=== PATIENT | female | born 1940 | race Caucasian/White ===

== ENCOUNTER 2020-04-12 15:41 | Emergency (ER) | payer MEDICARE, SELFPAY ==
[2020-04-12] VITALS (16 sets, daily range): BP systolic 81–124; BP diastolic 41–65; PULSE 68–84; RESP 15–32; TEMP 36.2–36.7; O2SAT 96–100
--- NOTE | ~2020-04-12 | CT_ITS ---
EXAMINATION: CT abdomen pelvis wo con DATE: 04/12/2020 18:00 INDICATION: Epigastric pain TECHNIQUE: Computed tomography (CT) of the abdomen and pelvis was performed without intravenous contr ast. Automated exposure control and iterative reconstruction technique were employed. The dose-length product was 734.20 mGy-cm. COMPARISON: None FINDINGS: Scattered linear discoid atelectasis in the bilateral lower lung zones. Arch size is normal. Mild lef t atrial enlargement. Mitral valve repair. Cardiac pacemaker leads with tips at the right atrial appe ndage and near the apex of the right ventricle. Atherosclerotic coronary artery calcification. Aortic valve calcification. No pericardial or pleural effusion. Well-defined 3.2 cm relatively low-attenuation hepatic lesion statistically most likely to represent a hepatic cyst. Cholecystectomy clips the gallbladder fossa. Bilateral renal cysts measuring up to 4. 1 cm in maximal diameter on the right and 3.9 cm on the left. There is a large retroperitoneal hemato ma in the right upper quadrant located along the posterior margin of the duodenum which measures 10.4 cm craniocaudally and 10.8 x 5.5 cm in maximal transaxial dimensions. There is fatty atrophy of the pancreas with some stranding about the head and body of the pancreas which is likely related to the h emorrhage but could not absolutely excluded acute interstitial pancreatitis. Bilateral adrenal glands and spleen are normal. There is a small amount of hemoperitoneum predominately in the pelvis with sm all amount of hemoperitoneum along the liver and spleen. Aside from the duodenum, assessment of which is limited by the surrounding hemorrhage, there is no abnormal bowel wall thickening. No bowel obstr uction. Bladder is normal. The uterus is not identified and has likely been surgically resected. Ther e are couple dropped gallstones in the deep pelvis. No free intraperitoneal gas. Multiple prominent mesenteric lymph nodes along with additional likely p eriportal lymphadenopathy assessment of which is limited by the surrounding inflammatory stranding an d hemorrhage in the portacaval region. There is an approximately 3.8 x 4.3 x 3.9 cm relatively aggres sive appearing mixed lytic and sclerotic lesion in the left sacral ala which is concerning for malign joy. Moderate to severe thoracolumbar spondylosis. There is an additional 1 cm sclerotic bone lesion posterior to the left acetabulum with stippled appearance to the calcification is indeterminate for bone island versus potentially bone metastasis. IMPRESSION: 1. Large retroperitoneal hematoma in the right upper quadrant centered along the posterior margin of the duodenum which is of indeterminate origin. Additional small amount of hemoperitoneum. 2. Stranding surrounding the head and body of the pancreas most likely related to the hemorrhage but would correlate with amylase and lipase levels to exclude acute interstitial pancreatitis. 3. Approximately 4 similar aggressive appearing mixed lytic and sclerotic lesion at the left sacral a la which is concerning for malignancy, either primary or metastatic. The sclerotic portion of the les ion has an appearance suggesting chondroid matrix raising particular concern for chondrosarcoma. 4. A second small sclerotic lesion posterior to the left acetabulum which could represent either bone island or metastatic disease. 5. Mesenteric and periportal lymphadenopathy which could be reactive, metastatic or lymphoma. 6. 3.2 cm relatively well-defined low-attenuation hepatic lesion statistically most likely to represe nt a hepatic cyst although differential would include less likely metastases. Given the size and loca tion ultrasound to be obtained for discrimination and is lesion appears solid would consider ultrasou nd-guided biopsy. Reviewed, dictated and finalized a
--- NOTE | ~2020-04-12 | XR_ITS ---
EXAMINATION: XR chest 2V DATE: 04/12/2020 16:22 INDICATION: Right rib pain TECHNIQUE: frontal and lateral views of the chest were obtained. COMPARISON: Chest radiograph dated 01/29/2014 FINDINGS: Eventration along the anterior left hemidiaphragm which is new since the prior study. Linear opacitie s in the bilateral mid and lower lung zones with configuration favoring discoid atelectasis over pneu monia. No pulmonary edema, pleural effusion or pneumothorax. The cardiomediastinal silhouette is norm al. Cardiac valve repair, likely mitral. Cholecystectomy clips in the right upper quadrant. Moderate degenerative skeletal changes in the spine and at both shoulders. IMPRESSION: 1. Linear opacities in the bilateral mid and lower lung zones which favors atelectasis over pneumonia . Reviewed, dictated and finalized at location A. IMPRESSION: 1. Linear opacities in the bilateral mid and lower lung zones which favors atel ectasis over pneumonia.
--- NOTE | 2020-04-12 15:50 | ECG_ITS ---
Measurements Intervals Webb Rate: 49 P: 81 WI: 164 QRS: 16 QRSD: 81 T: 32 QT: 417 QTc: 377 Interpretive Statements SINUS RHYTHM FREQUENT ATRIAL PREMATURE COMPLEXES BORDERLINE T WAVE ABNORMALITY- ANTERIOR LEADS BASELINE WANDER- I, II, AVR, AVF, V3 ABNORMAL ECG Electronically Signed On 04-13-2020 6:48:57 CDT by Nimesh Phillips D.O.
--- NOTE | 2020-04-12 16:01 | ED.ABDPAIN ---
HPI - Abdominal Pain General Chief Complaint: Abdominal Pain <Evan Allison MD - Last Filed: 04/16/20 17:26> Stated Complaint: weakness/abd pain <Evan Allison MD - Last Filed: 04/16/20 17:26> Time Seen by Provider: 04/13/20 07:04 <Evan Allison MD - Last Filed: 04/16/20 17:26> History of Present Illness HPI narrative: 80 yo female with a h/o abdominal issues presents to the ED for weakness and abdominal pain. She reports that she has epigastric pain for 3 months. She has had little appetite over that time. She was being elvaluated by Dr. Baker at [facility]. She had a recent upper endoscopy showing tammie erythema in the stomach and signs of gastroparesis. Last night she felt a pop in her side and began having severe pain in the RUQ and epigastrium. Today she was feeling to weak to walk, so she called EMS. They noted that she was hypotensive with SBP of 80. She denies any dark or bloody stools. No CP, SOB, syncope. <Evan Allison MD - Last Filed: 04/16/20 17:26> Related Data Home Medications: Home Medications Medication Instructions Recorded Confirmed acetaminophen [Tylenol] 65 mg PO PRN PRN 04/12/20 aspirin 81 mg PO DAILY 04/12/20 atorvastatin 10 mg PO HS 04/12/20 dicyclomine 10 mg PO TID 04/12/20 dimenhydrinate 50 mg PO Q8H 04/12/20 docusate sodium [Colace] 100 mg PO BID 04/12/20 famotidine [Pepcid] 20 mg PO BID 04/12/20 furosemide [Lasix] 40 mg PO DAILY 04/12/20 [id number] [Creon] PO 04/12/20 nortriptyline 25 mg PO HS 04/12/20 omeprazole magnesium [Prilosec OTC] 20 mg PO BID 04/12/20 oxycodone 5 mg PO Q4H PRN 04/12/20 prochlorperazine maleate 04/12/20 sertraline 100 mg PO DAILY 04/12/20 spironolactone 37.5 mg PO DAILY 04/12/20 warfarin 1 mg PO DAILY 04/12/20 propranolol PO 04/13/20 <Evan Allison MD - Last Filed: 04/16/20 17:26> Allergies/Adverse Reactions: Allergies Allergy/AdvReac Type Severity Reaction Status Date / Time iodine Allergy Intermediate Headache Verified 04/12/20 20:49 morphine Allergy Mild Unknown Verified 04/12/20 20:49 nalbuphine Allergy Mild Vomiting Verified 04/12/20 20:49 codeine Allergy Unknown Unknown Verified 04/12/20 20:49 <Evan Allison MD - Last Filed: 04/16/20 17:26> Review of Systems Review of Systems: All systems reviewed & are unremarkable except as noted in HPI and below <Evan Allison MD - Last Filed: 04/16/20 17:26> Constitutional: Constitutional: Reports fatigue, Denies fever(s) and Reports weakness <Evan Allison MD - Last Filed: 04/16/20 17:26> ENT: Denies sore throat <Evan Allison MD - Last Filed: 04/16/20 17:26> Cardiovascular: Cardiovascular: Denies chest pain <Evan Allison MD - Last Filed: 04/16/20 17:26> Respiratory: Respiratory: Denies dyspnea <Evan Allison MD - Last Filed: 04/16/20 17:26> Gastrointestinal: Gastrointestinal: Reports abdominal pain, Denies constipation, Denies diarrhea, Reports nausea and Denies vomiting <Evan Allison MD - Last Filed: 04/16/20 17:26> Genitourinary: Genitourinary: Denies hematuria and Denies dysuria <Evan Allison MD - Last Filed: 04/16/20 17:26> Musculoskeletal: Musculoskeletal: Denies back pain <Evan Allison MD - Last Filed: 04/16/20 17:26> Neurologic: Reports dizziness, Denies syncope, Denies numbness and Reports weakness <Evan Allison MD - Last Filed: 04/16/20 17:26> PMFSH Past Medical History Medical History: Medical History (Updated 04/14/20 @ 00:00 by Background Daemon) Atrial fibrillation Cardiomyopathy <Evan Allison MD - Last Filed: 04/16/20 17:26> Surgical History Surgical History: Surgical History (Updated 04/12/20 @ 21:01 by Evan Allison MD) H/O maze procedure History of cholecystectomy <Evan Allison MD - Last Filed: 04/16/20 17:26> Social History Social History: Social History (Updated 04/12/20
[2020-04-12 16:03] LABS: Basophils Percent Auto 0.3 % (0.2-1.2); Eosinophils Percent Auto 0.1 % (0-4.4); Hematocrit 30.2 % (37.0-47.0); Hemoglobin 10.1 g/dL (12.0-15.0); Immature Granulocyte Percent A 1.4 % (0-0.5); Lymphocytes Absolute Auto 1.66 K/mm3 (0.9-3.2); Lymphocytes Percent Auto 23.7 % (18.3-44.2); Mean Corpuscular HGB Conc 33.4 g/dl (32-36); Mean Corpuscular Hemoglobin 29.2 pg (26-34); Mean Corpuscular Volume 87.3 fl (80-100); Monocytes Percent Auto 13.7 % (2.6-8.5); Neutrophils Absolute Auto 4.3 K/mm3 (1.3-6.7); Neutrophils Percent Auto 60.8 % (45.5-73.1); Platelet Count Result 158 k/mm3 (150-375); Red Blood Count 3.46 M/mm3 (4.2-5.4); Red Cell Distribution Width 15.9 % (11.5-14.5)
[2020-04-12 16:15] LABS: Alanine Aminotransferase 22 U/L (4-35); Albumin Level 4.3 g/dL (3.5-5.1); Alkaline Phosphatase 104 U/L (38-126); Anion Gap 11 mmol/L (8-16); Aspartate Amino Transferase 25 U/L (14-36); Bilirubin,Total 0.9 mg/dL (0.2-1.3); Blood Urea Nitrogen 18 mg/dL (7-17); Calcium 9.5 mg/dL (8.4-10.2); Carbon Dioxide 27 mmol/L (22-30); Chloride 96 mmol/L (98-107); Estimated CRCL calculation 32 ml/min; Estimated Glomerular Filt Rate 53; Glucose 168 mg/dL (65-105); Sodium 134 mmol/L (137-145)
--- NOTE | 2020-04-12 16:20 | PC.NURSE ---
VERBAL ORDER FROM [facility] FOR A SECOND NS 1L BOLUS.
--- NOTE | 2020-04-12 16:20 | PC.NURSE ---
PT AWARE OF NEED FOR URINE, UNABLE TO PROVIDE SAMPLE AT THIS TIME, REFUSING CATH.
[2020-04-12 16:23] LABS: INR 1.3; Lactic Acid Reflex 1.9 mmol/L (0.7-2.1); Partial Thromboplastin Time 29.5 SECONDS (22.3-36.8); Prothrombin Time 15.6 Seconds (11.1-14.7)
[2020-04-12] MEDS: SODIUM CHLORIDE 0.9% IV 1,000 ML 999 ML IV CONT (16:29)
[2020-04-12 16:35] LABS: Troponin I < 0.012 ng/mL (0.000-0.034)
[2020-04-12 16:54] LABS: Add Urine Microscopic? YES; Appearance Urine Clear (Clear); Bilirubin Urine Negative (Negative); Blood Urine Negative (Negative); Color Urine Yellow (Yellow); Glucose Urine UA Negative (Negative); Ketones Urine Negative (Negative); Leukocyte Esterase Ur Negative LEU/UL (Negative); Mucus Urine Rare /lpf; Nitrate Urine Negative (Negative); Protein Urine Negative (Negative); RBC Urine 0-2 /hpf (0-2); Specific Grav Ur 1.015 (1.001-1.035); Urobilinogen Urine Negative mg/dL (<2.0); WBC Urine 0-3 /hpf
--- NOTE | 2020-04-12 19:13 | PC.NURSE ---
PT AND FAMILY STATES THEY HAVE MORE QUESTIONS ABOUT PT TRANSFER. I INFORMED [facility] THAT THEY HAVE REQUESTED MORE INFORMATION AND HE STATES HE WILL GO AND SPEAK WITH THEM. PT REPORT GIVEN BEDSIDE AT THIS TIME, [facility] SCHWAB HAS ASSUMED PT CARE.
[2020-04-12 20:42] LABS: Hematocrit 25.4 % (37.0-47.0); Hemoglobin 8.4 g/dL (12.0-15.0)
--- NOTE | 2020-04-12 21:07 | PC.NURSE ---
Jori FROM PATIENT ACCESS/TRANSFER LINE CALLED AND SAID PATIENT HAS BEEN ACCEPTED, BUT ACCEPTING DOCTOR WANTS HER TO GO TO A STEP-DOWN FLOOR AND THERE WILL NOT BE ANY BEDS AVAILABLE UNTIL TOMORROW SOMETIME (04-13-)
[2020-04-12] MEDS: SODIUM CHLORIDE 0.9% IV 250 ML 30 ML IV CONT (22:27)
[2020-04-12] MEDS: SODIUM CHLORIDE 0.9% IV 1,000 ML 75 ML IV CONT (22:27)
[2020-04-12] MEDS: PANTOPRAZOLE SODIUM IV 40 MG VIAL IV PUSH (22:55)
[2020-04-13] VITALS (16 sets, daily range): BP systolic 93–125; BP diastolic 45–73; PULSE 66–88; RESP 14–19; TEMP 36.6–36.8; O2SAT 96–100
[2020-04-13 03:57] LABS: Hematocrit 28.5 % (37.0-47.0)
--- NOTE | 2020-04-13 05:30 | PC.NURSE ---
Spoke to Ritu again at [facility] still no bed available. Will have to wait until there are some discharges today.
--- NOTE | 2020-04-13 07:10 | PC.NURSE ---
Report received from [facility] Ibanez. Pt c/o diffuse mid abd pain and nausea. Note pt has increased eructations at present. Awaiting room assignment at [facility].
[2020-04-13] MEDS: ONDANSETRON INJ 4 MG/2 ML VIAL IV PUSH (07:26)
[2020-04-13] MEDS: HYDROcodone/acetaminophen (*CRX) 5-325 MG TABLET 1 TAB PO (08:52)
--- NOTE | 2020-04-13 09:54 | PC.NURSE ---
Spoke with Ayesha brock at [phone]. they stated they are in the process of cleaning rooms and should have one ready soon.
[2020-04-13] MEDS: PANTOPRAZOLE SODIUM IV 40 MG VIAL (10:34)
[2020-04-13] MEDS: SODIUM CHLORIDE 0.9% IV 1,000 ML 75 ML (10:40)
[2020-04-13] MEDS: SERTRALINE HCL 50 MG TABLET 100 MG PO (11:22)
--- NOTE | 2020-04-13 11:32 | PC.NURSE ---
Report to [facility]AD[facility] Cox, to continue care.
[2020-04-13 14:17] LABS: Hematocrit 26.5 % (37.0-47.0); Hemoglobin 8.7 g/dL (12.0-15.0)
[2020-04-13] MEDS: FAMOTIDINE 20 MG/2 ML VIAL IV PUSH (14:30)
[2020-04-13 17:04] LABS: INR 1.3; Prothrombin Time 15.5 Seconds (11.1-14.7)
[2020-04-13 17:05] LABS: Partial Thromboplastin Time 34.1 SECONDS (22.3-36.8)
--- NOTE | 2020-04-13 18:39 | PC.NURSE ---
contacted jessica to transfer patient to [facility] [phone]
== END 2020-04-13 19:47 | disposition short-term general hospital (02) ==
PROVIDERS: Emergency Medicine; Emergency Provider Emergency Medicine; PCP Psychiatry & Neurology Neurology
DX: K66.1 Hemoperitoneum (principal); D62 Acute posthemorrhagic anemia; Z79.01 Long term (current) use of anticoagulants; I48.91 Unspecified atrial fibrillation; Z79.82 Long term (current) use of aspirin; I42.9 Cardiomyopathy, unspecified; R94.31 Abnormal electrocardiogram [ECG] [EKG]; R91.8 Other nonspecific abnormal finding of lung field; M89.9 Disorder of bone, unspecified; R59.1 Generalized enlarged lymph nodes; K76.9 Liver disease, unspecified; R93.3 Abnormal findings on diagnostic imaging of other parts of digestive tract
CPT/HCPCS: 36415; 36430; 51701; 71046; 74176; 80053; 81001; 82435; 83605; 84484; 85014; 85018; 85025; 85610; 85730; 86850; 86900; 86901; 86923; 93005; 96361; 96365; 96375; 99285; A9270; C9113; J0131; J2405; J7030; J7050; P9016

== ENCOUNTER 2020-07-21 08:48 | Outpatient (CLI) | payer MEDICARE, SELFPAY ==
--- NOTE | ~2020-07-21 | CT_ITS ---
EXAMINATION: CT abdomen pelvis wo/w con DATE: 07/21/2020 09:35 INDICATION: Retroperitoneal hematoma TECHNIQUE: Computed tomography (CT) of the abdomen was performed without intravenous contrast. CT of the abdomen and pelvis was then performed with a total of 100 mL Omnipaque 350 intravenous contrast. The dose-length product (DLP) was 734.39 mGy-cm. Automated exposure control and iterative reconstruct ion technique were employed. COMPARISON: 04/12/2020 FINDINGS: Minimal dependent atelectasis is present in the lung bases. The heart size is mildly enlarg ed. There is a 3 cm cyst of the left hepatic lobe. The gallbladder is surgically absent. There is mil d enlargement of the common bile duct and central intrahepatic ducts which is likely due to post chol ecystectomy state. The spleen and adrenal glands are normal. There is a 4.0 x 2.9 cm cystic lesion ad jacent to the head of the pancreas without significant internal enhancement after contrast administra tion. Cysts of the kidneys measure up to 4.2 cm. There is a questionable 1.9 cm soft tissue density m ass in upper pole calyx of the left kidney on image 63. There is calcified atherosclerosis of the aor ta and many of the other arteries. No pathologically enlarged abdominal or pelvic lymph nodes are violet ntified. No persistent retroperitoneal hematoma is identified. Mixed lytic and sclerotic lesions of t he left sacral ala and left acetabulum are unchanged. IMPRESSION: 1. Resolved retroperitoneal hematoma. 2. Persistent cystic lesion adjacent to the head of the pancreas, likely pseudocysts versus sterile w alled off necrosis. 3. Mixed lytic and sclerotic lesions of the left sacral ala and left acetabulum which may reflect met astatic disease versus primary malignancy. 4. Possible soft tissue mass in upper pole calyx of the left kidney. Further evaluation by CT urogram or MRI without and with contrast is recommended. Reviewed, dictated and finalized at location A. NICAL INSPECTOR IMPRESSION: 1. Resolved retroperitoneal hematoma. 2. Persistent cystic lesion adjacent to the head of the pancreas, likely pseudo cysts versus sterile walled off necrosis. 3. Mixed lytic and sclerotic lesions of the left sacral ala and left acetabulum which may reflect metastatic disease versus primary malignancy. 4. Possible soft tissue mass in upper pole calyx of the left kidney. Further ev aluation by CT urogram or MRI without and with contrast is recommended.
[2020-07-21 09:23] LABS: Estimated Glomerular Filt Rate > 60
== END 2020-07-21 08:49 | disposition home or self-care (01) ==
PROVIDERS: Visit Provider Urology
DX: K66.1 Hemoperitoneum (principal); K76.89 Other specified diseases of liver; K86.2 Cyst of pancreas; N28.1 Cyst of kidney, acquired; I25.10 Atherosclerotic heart disease of native coronary artery without angina pectoris
CPT/HCPCS: 74178; Q9967

== ENCOUNTER 2020-07-24 13:17 | Outpatient (CLI) | payer MEDICARE, SELFPAY ==
--- NOTE | 2020-07-24 14:11 | ECG_ITS ---
Measurements Intervals [place] Rate: 65 P: 64 MI: 152 QRS: 32 QRSD: 79 T: 61 QT: 422 QTc: 441 Interpretive Statements SINUS RHYTHM BASELINE WANDER- I, II, V5-V6 NORMAL ECG Electronically Signed On 07-24-2020 16:12:29 ELECTRICAL SIGN SERVICER by Nimesh Phillips D.O.
== END 2020-07-24 13:18 | disposition home or self-care (01) ==
DX: I48.0 Paroxysmal atrial fibrillation (principal)
CPT/HCPCS: 93005

== ENCOUNTER 2020-08-12 07:21 | Outpatient (CLI) | payer MEDICARE, SELFPAY ==
--- NOTE | ~2020-08-12 | NM_ITS ---
EXAMINATION: NM bone scan whole body DATE: 08/12/2020 12:34 INDICATION: Lytic lesion of the sacrum. TECHNIQUE: 23.6 mCi Tc-99m HDP was administered intravenously. Delayed whole-body scintigrams were o btained. COMPARISON: CT abdomen and pelvis 08/12/2020 FINDINGS: There are bilateral total knee arthroplasties. There is increased activity in two anterior right ribs correlating with healing/healed fractures on the prior CT. There is joint-centered increas ed activity in the shoulders and feet without radiographic comparison, likely osteoarthritis. There i s normal activity in the sacrum. IMPRESSION: 1. No abnormal activity in the sacrum to correlate with the lytic lesion described by CT, likely a he mangioma. Reviewed, dictated and finalized at location A. SSORIES REPAIRER IMPRESSION: 1. No abnormal activity in the sacrum to correlate with the lytic lesion descri bed by CT, likely a hemangioma.
--- NOTE | ~2020-08-12 | CT_ITS ---
EXAMINATION: CT abdomen pelvis wo/w con EXAM DATE: 08/12/2020 08:23 INDICATION: Gross hematuria. Bone lesion. TECHNIQUE: Spiral CT of the abdomen and pelvis was performed without contrast. The patient was then injected with small bolus intravenous Omnipaque 350, followed by delay of approximately 10 minutes to allow collecting system to opacify. A post contrast scan abdomen and pelvis was performed during inj ection of remaining contrast. A total of 130 cc intravenous contrast was administered. The dose-kailey th product (DLP) for this examination was 1220.79 mGy-cm. The exposure was tailored according to pat ient size (auto mA exposure control), and iterative reconstruction (ASIR) was used as additional dose reduction technique. Comparison is made to prior examination from 07/21/2020. FINDINGS: There is enhancing mass along left renal anterior superior hilar region, appears most likel y arising from calyces measuring about 2.2 cm in diameter. 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 T here is no hydronephrosis or nephrolithiasis. There are bilateral renal cysts, up to 4 cm. The opaci fied portions of ureters are unremarkable, without filling defects or focal suspicious strictures. T he bladder is unremarkable. The uterus is not identified and has likely been surgically resected. There is cystic region contiguous to the duodenum and uncinate process of the pancreas measuring 3.1 x 2.3 cm (measured 3.6 x 2.9 cm 3 weeks ago). This could be a duodenal diverticulum given change in d istention/size, although these usually have some amount of gas inside. Pancreatic uncinate cystic mas s also possible. Left liver lobe lateral segment 3 cm cyst. Spleen, adrenal glands are unremarkable. There are cholec ystectomy clips. There is a pericecal lymph node or mesenteric mass measuring 1.4 x 1.1 cm. No retro peritoneal lymphadenopathy. There is moderate scattered arteriosclerotic disease. The appendix is not positively visualized. There is no pericecal inflammatory change to suggest appe ndicitis. The stomach and small bowel are unremarkable. Moderate amount of low density colonic sto ol. No free intraperitoneal gas. There is cardiomegaly. There are no pleural or pericardial effus ions. There is mitral valve replacement. The lung bases are unremarkable. There is predominantly ly tic lesion involving most of the left sacral ala, with some region measuring fluid density. No discre te cortical break. IMPRESSION: 1. Left renal hilar/superior calyceal enhancing mass suspicious for transitional cell cancer. Altern atively, other histology causing mass effect on calyces. 2. Duodenal diverticulum versus cystic pancreatic mass with decrease in size. 3. No change in predominantly lytic left sacral lesion. 4. Mesenteric mass versus mildly enlarged pericecal lymph node. Reviewed, dictated and finalized at location B. ATIENT DIETITIAN IMPRESSION: 1. Left renal hilar/superior calyceal enhancing mass suspicious for transition al cell cancer. Alternatively, other histology causing mass effect on calyces. 2. Duodenal diverticulum versus cystic pancreatic mass with decrease in size. 3. No change in predominantly lytic left sacral lesion. 4. Mesenteric mass versus mildly enlarged pericecal lymph node.
== END 2020-08-12 07:22 | disposition home or self-care (01) ==
PROVIDERS: Visit Provider Urology
DX: R31.0 Gross hematuria (principal); M89.9 Disorder of bone, unspecified
CPT/HCPCS: 74178; 78306; A9561; Q9967

== ENCOUNTER → 2020-08-22 01:12 | Outpatient (CLI) | payer MEDICARE, SELFPAY ==
[2020-08-22 19:48] LABS: SARS-CoV-2 RNA PCR Negative
== END ==
PROVIDERS: Visit Provider Urology
DX: Z01.812 Encounter for preprocedural laboratory examination (principal); Z20.822 Contact with and (suspected) exposure to COVID-19
CPT/HCPCS: 36415; 80048; 87086; C9803; U0003; U0005

== ENCOUNTER 2020-08-22 08:55 | Outpatient (CLI) | payer MEDICARE, SELFPAY ==
[2020-08-22 09:57] LABS: Potassium 3.9 mmol/L (3.4-5.0)
[2020-08-22 10:10] LABS: Anion Gap 8 mmol/L (8-16); Blood Urea Nitrogen 16 mg/dL (7-17); Calcium 9.2 mg/dL (8.4-10.2); Carbon Dioxide 31 mmol/L (22-30); Chloride 96 mmol/L (98-107); Estimated Glomerular Filt Rate 53; Glucose 121 mg/dL (65-105); Sodium 135 mmol/L (137-145)
== END 2020-08-22 08:56 | disposition home or self-care (01) ==
PROVIDERS: Referring Provider Anesthesiology; Visit Provider Urology
DX: Z01.812 Encounter for preprocedural laboratory examination (principal); I10 Essential (primary) hypertension; N20.0 Calculus of kidney
CPT/HCPCS: 36415; 80048; 87086

== ENCOUNTER 2020-08-25 01:41 | Day surgery (SDC) | payer MEDICARE, SELFPAY ==
[2020-08-21 13:45] VITALS: BMI 25.7
--- NOTE | 2020-08-24 11:20 | P.PNAN_ITS ---
Anes - Initial Pre Proc Eval Procedure: Operation Date: 08/25/20 10:30 Proposed Procedures p Cystoscopy, Left Retrograde Pyelogram, Left Ureteroscopy with Biopsy, Possible Stent Placement - Delvin Barrett MD Date/Time: 08/24/20 11:20 Surgeon: Delvin Barrett MD Pre Op Diagnosis: Left Kidney Stone Patient Data Age: 80 Gender: F Height: 1.6 m Weight: 65.8 kg Allergies Allergy/AdvReac Type Severity Reaction Status Date / Time iodine Allergy Intermediate Headache Verified 08/25/20 08:37 morphine Allergy Mild ABD. PAIN Verified 08/25/20 08:37 nalbuphine Allergy Mild Vomiting Verified 08/25/20 08:37 codeine Allergy Unknown Abdominal Verified 08/25/20 08:37 Pain Home Medications Medication Instructions Recorded Confirmed Type acetaminophen [Tylenol] 65 mg PO PRN PRN 04/12/20 08/21/20 History aspirin 81 mg PO DAILY 04/12/20 08/25/20 History atorvastatin 10 mg PO HS 04/12/20 08/25/20 History docusate sodium [Colace] 50 mg PO BID 04/12/20 08/25/20 History furosemide [Lasix] 40 mg PO DAILY 04/12/20 08/25/20 History sertraline 100 mg PO QAM 04/12/20 08/25/20 History spironolactone 12.5 mg PO DAILY 04/12/20 08/25/20 History propranolol 60 mg PO QAM 04/13/20 08/25/20 History apixaban [Eliquis] 5 mg PO BID 08/21/20 08/25/20 History ascorbic acid (vitamin C) 1 g PO DAILY 08/21/20 08/25/20 History biotin 2,500 mcg PO DAILY 08/21/20 08/25/20 History cholecalciferol (vitamin D3) 25 mcg PO DAILY 08/21/20 08/25/20 History duloxetine 20 mg PO QAM 08/21/20 08/25/20 History gabapentin 100 mg PO TID 08/21/20 08/25/20 History inulin [Fiber Gummies] 4 g PO DAILY 08/21/20 08/25/20 History pantoprazole 40 mg PO HS 02/12/21 02/16/21 History Patient hx anesthesia problems: none Family hx anesthesia problems: none [facility] Past Medical History Medical History (Updated 08/24/20 @ 11:22 by Sloan Santos DO) Anxiety Atrial fibrillation Cardiomyopathy Depression GERD (gastroesophageal reflux disease) Hyperlipidemia Hypertension Pacemaker Surgical History Surgical History (Updated 08/24/20 @ 11:22 by Sloan Santos DO) H/O maze procedure History of cholecystectomy History of hysterectomy History of mitral valve repair Social History Social History (Updated 04/12/20 @ 21:01 by Evan Allison MD) Smoking status: Never smoker Living arrangements: alone Gender identity (if verbalized by the patient): Female Spiritual care concerns: No Anes - Eval Final PreProcedure Day of Procedure 08/24/20 11:20 Patient weight: overweight Heart: regular rate and rhythm Lungs: clear to auscultation and normal air movement Airway: Mallampati scale class II Neurological: alert and oriented Last oral intake: >/= 8 hours ASA classification: III Emergent: no Anesthetic plan: proceed Anesthesia type and monitoring: general LMA and standard monitoring Informed Consent: The patient's anesthetic plan and its attendant risks and benefits were discussed with the patient/family/POA. Questions were solicited and answers provided to the satisfaction of the patient/family/POA.
[2020-08-25] VITALS (7 sets, daily range): BP systolic 102–124; BP diastolic 54–73; PULSE 60–65; RESP 13–20; TEMP 36.6; O2SAT 98–100
--- NOTE | ~2020-08-25 | XR_ITS ---
EXAMINATION: XR retrograde pyelo w/stent LT INDICATION: Left retrograde pyelogram TECHNIQUE: 16 intraoperative fluoroscopic images are submitted for review. Total fluoroscopic time is 104.7 seconds. COMPARISON: CT, 08/12/2020 FINDINGS: Fluoroscopic images demonstrate retrograde opacification of a normal caliber left ureter. P lease refer to procedure note for full details. IMPRESSION: 1. Unremarkable left retrograde pyelogram. Please refer to procedure note for full details. Reviewed, dictated and finalized at location A. [employer] OPERATOR IMPRESSION: 1. Unremarkable left retrograde pyelogram. Please refer to procedure note for f ull details.
[2020-08-25 09:07] LABS: Hematocrit 35.4 % (37.0-47.0); Hemoglobin 11.7 g/dL (12.0-15.0)
[2020-08-25] MEDS: LACTATED RINGERS 1,000 ML 30 ML IV CONT (09:08)
--- NOTE | 2020-08-25 09:39 | PM.IMHP ---
H&P: HPI History of Present Illness Date/Time: 08/25/20 09:39 Chief Complaint: left renal mass Narrative: Katie Novoa is a 80 year old female who initially presented with a left renal hematoma. Subsequent follow up reveals a possible left upper pole renal lesion. Review of Systems Review of Systems: All systems reviewed & are unremarkable except as noted in HPI and below PMFSH Past Medical History Medical History Anxiety Atrial fibrillation Cardiomyopathy Depression GERD (gastroesophageal reflux disease) Hyperlipidemia Hypertension Pacemaker Surgical History Surgical History H/O maze procedure History of cholecystectomy History of hysterectomy History of mitral valve repair Social History Social History Smoking status: Never smoker Living arrangements: alone Gender identity (if verbalized by the patient): Female Spiritual care concerns: No Meds Home Medications and Allergies Home Medications Medication Instructions Recorded Confirmed Type acetaminophen [Tylenol] 65 mg PO PRN PRN 04/12/20 08/21/20 History aspirin 81 mg PO DAILY 04/12/20 08/25/20 History atorvastatin 10 mg PO HS 04/12/20 08/25/20 History docusate sodium [Colace] 50 mg PO BID 04/12/20 08/25/20 History furosemide [Lasix] 40 mg PO DAILY 04/12/20 08/25/20 History sertraline 100 mg PO QAM 04/12/20 08/25/20 History spironolactone 12.5 mg PO DAILY 04/12/20 08/25/20 History propranolol 60 mg PO QAM 04/13/20 08/25/20 History apixaban [Eliquis] 5 mg PO BID 08/21/20 08/25/20 History ascorbic acid (vitamin C) 1 g PO DAILY 08/21/20 08/25/20 History biotin 2,500 mcg PO DAILY 08/21/20 08/25/20 History cholecalciferol (vitamin D3) 25 mcg PO DAILY 08/21/20 08/25/20 History duloxetine 20 mg PO QAM 08/21/20 08/25/20 History gabapentin 100 mg PO TID 08/21/20 08/25/20 History inulin [Fiber Gummies] 4 g PO DAILY 08/21/20 08/25/20 History pantoprazole 40 mg PO HS 08/21/20 08/25/20 History Allergies Allergy/AdvReac Type Severity Reaction Status Date / Time iodine Allergy Intermediate Headache Verified 08/25/20 08:37 morphine Allergy Mild ABD. PAIN Verified 08/25/20 08:37 nalbuphine Allergy Mild Vomiting Verified 08/25/20 08:37 codeine Allergy Unknown Abdominal Verified 08/25/20 08:37 Pain Vital Signs Vital Signs - 24 hr 08/25/20 09:12 Temperature 36.6 C Pulse Rate 63 Respiratory Rate 16 Blood Pressure 102/73 Pulse Oximetry 98 Exam Const: General: cooperative HENMT: Head: normal to inspection Eyes: General: appearance normal, both eyes and all related structures Chest: Chest palpation & inspection: normal inspection of the chest Resp: Effort & Inspection: normal respiratory effort Cardio: Rate: regular rate GI: Inspection: normal to inspection H&P: Results Labs Labs: Short CBC 08/25/20 Range/Units 08:58 Hgb 11.7 L D (12.0-15.0) g/dL Hct 35.4 L (37.0-47.0) % Assessment and Plan Assessment and plan (1) Urinary retention: Code(s): R33.9 - Retention of urine, unspecified Status: Acute Assessment and Plan: Cystoscopy, left retrograde, left ureteroscopy with possible biopsy and stent placement
--- NOTE | 2020-08-25 09:41 | WPDHPUPDATE1 ---
History and Physical Update Update Date/Time: 08/25/20 09:41 History and Physical has been reviewed, including an updated exam of the patient. There are NO changes in the patient's condition. Risks, benefits, and alternatives have been discussed and questions answered. Patient agrees to proceed with procedure.
--- NOTE | 2020-08-25 10:04 | SUR.PREOP ---
Discussed with patient and daughter that surgery is an hour behind. Warm blanket placed on patient.
[2020-08-25] MEDS: ceFAZolin 2 GM/D5W 50 ML 2 GM/50 ML BAG IVPB (11:02)
[2020-08-25] MEDS: LIDOCAINE HCL 2% GEL UROJET 10 ML PKG MUCOUS MEM (11:21)
--- NOTE | 2020-08-25 11:49 | P.OP_ITS ---
Procedure Note - Detailed Date of procedure: 08/25/20 Pre-op diagnosis: Left Kidney Stone left upper pole renal lesion Post-op diagnosis: same (no tumor seen) Procedure performed: Cystoscopy, left retrograde pyelogram, left ureteroscopy, left ureteral stent placement 4.8 Australian contour Description of procedure: Patient is taken the operative suite and correctly identified. Once anesthesia was obtained she was placed in dorsal lithotomy position and prepped and draped usual sterile fashion. Twenty-two Australian scope was inserted the bladder. Pyelogram was performed. There was no discrete filling defects noted at this time. Given her recent CT findings we decided proceed with ureteroscopy. A wire was placed into left ureteral orifice. We dilated with 8/10 dilator. A mini flexible ureteroscope was then inserted. Her UPJ area was tight and required placement of a 2nd superstiff wire in order to manipulate into the kidney. All calices were evaluated. There were no tumors or filling defects noted. At the termination of procedure was noted that there was some redness along the renal pelvis medially. This may have been secondary to all the manipulation. A 4.8 Australian contour stent was then placed with the proximal end coiled in the renal pelvis and the distal in the bladder. 2% viscous lidocaine was inserted urethra. Patient is taken recovery stable condition. She will follow up in about a week's time for stent removal. We did send cytology from the renal pelvis. Further recommendation will be made pending that. Most likely will simply follow her with a CT in 3-6 months time. We will make a decision regarding repeating ureteroscopy based on future findings. Anesthesia: GLMA Surgeon: Delvin Barrett MD Drains: Yes Packing: No Pathology: yes Complications: No immediate complications Condition: stable Disposition: PACU
== END 2020-08-25 13:40 | disposition home or self-care (01) ==
PROVIDERS: Anesthesiology; Visit Provider Urology
PROC: (CPT 52352; principal; 2020-08-25 10:30)
DX: N20.0 Calculus of kidney (principal); R82.998 Other abnormal findings in urine; I48.91 Unspecified atrial fibrillation; I42.9 Cardiomyopathy, unspecified; I10 Essential (primary) hypertension; E78.5 Hyperlipidemia, unspecified; K21.9 Gastro-esophageal reflux disease without esophagitis; F41.8 Other specified anxiety disorders; Z95.0 Presence of cardiac pacemaker; Z79.01 Long term (current) use of anticoagulants; Z79.82 Long term (current) use of aspirin
CPT/HCPCS: 52332; 36415; 74420; 85014; 85018; 88108; A9270; C1758; C1769; C2617; J0690; J1100; J2405; J2704; J3010; J7120; Q9966

== ENCOUNTER 2020-10-30 13:54 | Outpatient (CLI) | payer MEDICARE, SELFPAY ==
--- NOTE | ~2020-10-30 | CT_ITS ---
EXAMINATION: CT abdomen pelvis wo/w con DATE: 10/30/2020 14:33 INDICATION: Gross hematuria. TECHNIQUE: Computed tomography (CT) of the abdomen and pelvis was performed without and with intraven ous contrast using a total of 130 mL Omnipaque-350 intravenous contrast with a double-bolus technique for simultaneous opacification of the renal parenchyma and renal collecting system. Automated exposu re control and iterative reconstruction technique were employed. The dose-length product was 876.10 m Gy-cm. COMPARISON: CT abdomen and pelvis 08/12/2020, 07/21/20, 04/12/2020 FINDINGS: The visualized portions of the lung bases demonstrate mild atelectasis. No pleural effusion. Cardiome aixa is noted. There are changes of mitral valve replacement. There are pacer wires in right atrium a nd right ventricle. There are coronary artery calcifications. No pericardial effusion. There is a 3.3 cm cyst in the liver. There are changes of cholecystectomy. The spleen is normal. 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 The adrenal glands are normal. There are cysts in the kidn eys measuring up to 4.0 cm on the right. There is a 2.8 x 2.7 cm enhancing mass at the hilum of the l eft kidney. There is no urolithiasis. The ureters or bladder are well opacified. There is mild left h ydroureter. There is a moderate volume of stool in the colon. There are no dilated loops of bowel. Th e appendix not visualized. There is a 13 x 16 mm ileocolic lymph node. There is no free intraperitone al fluid. There is a 4.8 cm lytic lesion in left sacrum. There is severe lumbar spondylosis and thora cic spondylosis. IMPRESSION: 1. 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 2. 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 3. Mildly enlarged ileocolic lymph node, stable from 04/12/2020, likely reactive. 4. 4.8 cm lytic lesion in the left sacrum, stable from 04/12/2020, most likely a hemangioma. Reviewed, dictated and finalized at location B. IMPRESSION: 1. 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 2. 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 3. Mildly enlarged ileocolic lymph node, stable from 04/12/2020, likely reactiv e. 4. 4.8 cm lytic lesion in the left sacrum, stable from 04/12/2020, most likely a hemangioma.
[2020-10-30 14:21] LABS: Estimated Glomerular Filt Rate 53
== END 2020-10-30 13:55 | disposition home or self-care (01) ==
PROVIDERS: Visit Provider Urology
DX: R31.0 Gross hematuria (principal); N28.89 Other specified disorders of kidney and ureter; R59.0 Localized enlarged lymph nodes; M89.9 Disorder of bone, unspecified; K31.9 Disease of stomach and duodenum, unspecified
CPT/HCPCS: 74178; Q9967

== ENCOUNTER 2021-04-12 22:41 | Observation (INO) | payer MEDICARE, SELFPAY ==
[2021-04-12 22:55] VITALS: BP 104/47; PULSE 60; RESP 18; TEMP 36.7; O2SAT 100
[2021-04-12] MEDS: OXYMETAZOLINE HCL 0.05% NAS 15 ML BTL (*BKC) 1 SPRAY NASAL (23:08)
[2021-04-12 23:16] VITALS: BP 96/43; PULSE 62; RESP 16; O2SAT 100
[2021-04-12 23:17] VITALS: PULSE 61; O2SAT 100
[2021-04-12 23:30] VITALS: PULSE 66; O2SAT 99
[2021-04-12 23:30] LABS: INR 3.1; Prothrombin Time 31.4 Seconds (11.1-14.7)
[2021-04-12 23:30] LABS: Basophils Percent Auto 0.4 % (0.2-1.2); Eosinophils Percent Auto 0.4 % (0-4.4); Immature Granulocyte Absolute 0.05 K/mm3 (0.00-0.031); Lymphocytes Percent Auto 26.2 % (18.3-44.2); Mean Corpuscular HGB Conc 30.4 g/dl (32-36); Mean Corpuscular Hemoglobin 26.8 pg (26-34); Mean Corpuscular Volume 88.1 fl (80-100); Mean Platelet Volume 10.4 fl (7.4-10.4); Monocytes Absolute Auto 0.4 K/mm3 (0.1-0.6); Monocytes Percent Auto 7.6 % (2.6-8.5); Neutrophils Absolute Auto 3.2 K/mm3 (1.3-6.7); Neutrophils Percent Auto 64.4 % (45.5-73.1); Platelet Count Result 110 k/mm3 (150-375); Red Blood Count 2.35 M/mm3 (4.2-5.4); Red Cell Distribution Width 21.3 % (11.5-14.5)
[2021-04-12 23:31] VITALS: BP 97/47; PULSE 60; O2SAT 99
[2021-04-12 23:31] LABS: Partial Thromboplastin Time 46.7 SECONDS (22.3-36.8)
[2021-04-12 23:45] LABS: Hemoglobin 6.3 g/dL (12.0-15.0)
[2021-04-12 23:46] LABS: Hematocrit 20.7 % (37.0-47.0)
[2021-04-12 23:49] VITALS: PULSE 60; RESP 16; O2SAT 100
[2021-04-13] VITALS (15 sets, daily range): BP systolic 90–128; BP diastolic 41–70; PULSE 59–69; RESP 14–20; TEMP 36.6–37.3; O2SAT 98–100; BMI 27.7
[2021-04-13] MEDS: SODIUM CHLORIDE 0.9% IV 1,000 ML 999 ML IV CONT (00:22)
[2021-04-13 01:15] LABS: Alanine Aminotransferase 15 U/L (4-35); Albumin Level 4.4 g/dL (3.5-5.1); Alkaline Phosphatase 111 U/L (38-126); Anion Gap 9 mmol/L (8-16); Aspartate Amino Transferase 30 U/L (14-36); Bilirubin,Total 0.9 mg/dL (0.2-1.3); Blood Urea Nitrogen 30 mg/dL (7-17); Calcium 9.2 mg/dL (8.4-10.2); Carbon Dioxide 25 mmol/L (22-30); Chloride 104 mmol/L (98-107); Estimated CRCL calculation 26 ml/min; Estimated Glomerular Filt Rate 43; Glucose 114 mg/dL (65-110); Potassium 4.2 mmol/L (3.4-5.0); Sodium 138 mmol/L (137-145)
--- NOTE | 2021-04-13 01:42 | ED.GENADULT ---
HPI - General Adult General Chief complaint: Unspecified Stated complaint: Nose bleed Time Seen by Provider: 04/12/21 22:45 Source: patient and family Mode of arrival: ambulatory Limitations: no limitations History of Present Illness HPI narrative: 81 year old female complains of 6 hour history of epistaxis. State blood oozing from R nares since this afternoon. No blood clots, no bilateral nares bleeding. Bleeding improves with compression of nose but usually starts again if she itches it. Patient states she takes warfarin for atrial fibrillation. States last bout of epistaxis she became anemic. Patient denies vomiting, hematemesis, melena, BRBPR and hematuria. States warfarin recently decreased due to INR of 3.7. No chest pain, no palpitations, no syncope, but she does feel a little lightheaded. Related Data Home Medications Medication Instructions Recorded Confirmed acetaminophen [Tylenol] 650 mg PO PRN PRN 04/12/20 04/13/21 aspirin 81 mg PO DAILY 04/12/20 04/13/21 atorvastatin 10 mg PO HS 04/12/20 04/13/21 docusate sodium [Colace] 100 mg PO DAILY 04/12/20 04/13/21 sertraline 100 mg PO QAM 04/12/20 04/13/21 spironolactone 25 mg PO DAILY 04/12/20 04/13/21 Fiber Gummies 4 g PO DAILY 08/21/20 04/13/21 ascorbic acid (vitamin C) 1 g PO DAILY 08/21/20 04/13/21 biotin 2,500 mcg PO DAILY 08/21/20 04/13/21 cholecalciferol (vitamin D3) 25 mcg PO DAILY 08/21/20 04/13/21 gabapentin 100 mg PO TID 08/21/20 04/13/21 methotrexate sodium [Methotrexate 12.5 mg PO WEEKLY 04/13/21 04/13/21 (Anti-Rheumatic)] methotrexate sodium [Methotrexate 12.5 mg PO WEEKLY 04/13/21 04/13/21 (Anti-Rheumatic)] warfarin 3 mg PO 3XW 04/13/21 04/13/21 warfarin 4 mg PO DAILY 04/13/21 04/13/21 Allergies Allergy/AdvReac Type Severity Reaction Status Date / Time iodine Allergy Intermediate Headache Verified 04/12/21 22:58 morphine Allergy Mild ABD. PAIN Verified 04/12/21 22:58 nalbuphine Allergy Mild Vomiting Verified 04/12/21 22:58 codeine Allergy Unknown Abdominal Verified 04/12/21 22:58 Pain Review of Systems Review of Systems: CONSTITUTIONAL: no fever, states 40 pound weight loss, no confusion EYES: no vision changes, no eye pain ENT: epistaxis from R nares, no sore throat, no difficulty swallowing CARDIOVASCULAR: no chest pain, no leg edema, no palpitations RESPIRATORY: no cough, no shortness of breath, no hemoptysis GASTROINTESTINAL: no abdominal pain, no nausea, no vomiting, no diarrhea GENITOURINARY: no flank pain, no dysuria, no hematuria SKIN: no rash, no jaundice MUSCULOSKELETAL: no back pain, no trauma. NEUROLOGIC: No headache, no dizziness, no focal weakness, no syncope PSYCHIATRIC: No hallucinations, no suicidal ideation [facility] Past Medical History Medical History (Updated 04/13/21 @ 10:49 by Laxmi Sethi PA-C) Anxiety Atrial fibrillation Cardiomyopathy Chronic anemia Depression GERD (gastroesophageal reflux disease) Hyperlipidemia Hypertension Pacemaker Sarcoidosis Surgical History Surgical History (Updated 04/13/21 @ 10:31 by Laxmi Sethi PA-C) H/O maze procedure History of cholecystectomy History of hysterectomy History of knee replacement Bilateral History of mitral valve repair Family History Family History (Updated 04/13/21 @ 10:31 by Laxmi Sethi PA-C) Mother Diabetes mellitus Heart disease Father Renal failure Lung cancer Heart disease Diabetes mellitus Sibling Breast cancer Social History Social History (Updated 04/13/21 @ 10:35 by Laxmi Sethi PA-C) Social History: Ms. Novoa lives at home alone. 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 She has 2 adult daughters. Her primary care provider is Dr. Shannon Brown at [facility]. She designates her daughter, Adina, as her surrogate decision maker and she would like to be a full code. Smoking status: Never smoker Second hand tobacco smoke exposure: No Alcohol intake: never Substance use: never
[2021-04-13] MEDS: SODIUM CHLORIDE 0.9% IV 250 ML 30 ML IV CONT ×2 (02:38→18:33)
[2021-04-13] MEDS: TUBING, BLOOD PLUM PUMP TUBING 1 EACH XX (02:39)
[2021-04-13 09:09] LABS: Hematocrit 22.8 % (37.0-47.0); Hemoglobin 7.1 g/dL (12.0-15.0)
--- NOTE | 2021-04-13 10:06 | PM.IMHP ---
H&P: HPI History of Present Illness Date/Time: 04/13/21 10:06 Chief Complaint: Epistaxis Narrative: Date of service: 04/13/2021 Katie Novoa is 81-year-old female with a history of atrial fibrillation on chronic anticoagulation, chronic anemia, sarcoidosis, CHF, hypertension, anxiety and depression who presented to the emergency department on 04/13/2021 with complaints of a nose bleed. Yesterday afternoon around 2:15 p.m. she began having a nose bleed. 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 Yesterday she picked this scab and had immediate bleeding from the right nare. She described this as a constant dripping which lasted 4-5 hours. She was leaning over a trash can allowing the blood to drip down and estimates that she saturated a dozen paper towels. Eventually, her daughter convinced her to proceed to the emergency department as the dripping of blood was continuing. She never felt dizzy or lightheaded. She did feel short of breath which has been a chronic issue for approximately 2 months and she is undergoing cardiac evaluation for this as an outpatient. She reports she had a similar nose bleed about 3 weeks ago which stopped after 2 hours. She denies any additional episodes of bleeding, specifically denies melena, hematochezia, hematemesis, hemoptysis, hematuria. Denies significant ecchymosis or hematoma. On presentation to the emergency department, Her vital signs were stable, she was afebrile, hemoglobin 6.3, hematocrit 20.7, platelets 110, BUN and creatinine minimally elevated with additional CBC and BMP unremarkable, and INR 3.1. in the ED, a nasal clamp was applied and bleeding stopped. On my evaluation, she is feeling well and has no complaints besides her chronic shortness of breath. She received 1 unit PRBC this morning. She has been admitted to the hospitalist service for observation. Supervising physician for this history and physical is Dr. Lucy Goncalves. Review of Systems Review of Systems: All systems reviewed with pertinent positives and negatives as per HPI. Additionally, patient denies abdominal pain, nausea, vomiting, fevers, or chills. Her appetite has been good. She denies any weight changes. She denies any urinary symptoms. She has been having regular bowel movements. As described above, she has had chronic shortness of breath ongoing for about 2 months with associated dyspnea on exertion. She has had decreased exercise intolerance and notes that she is now having difficulty walking into synagogue and cannot even carry a casserole dish in to synagogue with her. She is being followed for these symptoms by her drill runner, Dr. Martell Albarado, and has a RICKY and/or cardiac MRI scheduled next week. She denies chest pain. No palpitations. She denies lower extremity edema, claudication, discoloration. [facility] Past Medical History Medical History (Updated 04/13/21 @ 10:49 by Laxmi Sethi PA-C) Anxiety Atrial fibrillation Cardiomyopathy Chronic anemia Depression GERD (gastroesophageal reflux disease) Hyperlipidemia Hypertension Pacemaker Sarcoidosis Surgical History Surgical History (Updated 04/13/21 @ 10:31 by Laxmi Sethi PA-C) H/O maze procedure History of cholecystectomy History of hysterectomy History of knee replacement Bilateral History of mitral valve repair Family History Family History (Updated 04/13/21 @ 10:31 by Laxmi Sethi PA-C) Mother Diabetes mellitus Heart disease Father Renal failure Lung cancer Heart disease Diabetes mellitus Sibling Breast cancer Social History Social History (Updated 04/13/21 @ 10:35 by Laxmi Sethi PA-C) Social History: Ms. Novoa lives at home alone. 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 She has 2 adult daughters. Her primary care provider is Dr. Shannon Brown at [facility]. She designates her daughter, Adina, as her s
[2021-04-13] MEDS: GABAPENTIN 100 MG CAPSULE PO ×3 (10:17→21:29)
[2021-04-13] MEDS: CHOLECALCIFEROL 1,000 UNITS TABLET 1000 UNITS PO (10:17)
[2021-04-13] MEDS: SPIRONOLACTONE 25 MG TABLET PO (10:17)
[2021-04-13] MEDS: SERTRALINE HCL 50 MG TABLET 100 MG PO (10:17)
[2021-04-13 15:38] LABS: Hematocrit 22.5 % (37.0-47.0)
--- NOTE | 2021-04-13 18:03 | WPDCN ---
Assessment and Plan Assessment and plan (1) Epistaxis: Code(s): R04.0 - Epistaxis Status: Acute Assessment and Plan: 81y F on coumadin with epistaxis on the right secondary to picking at a crust in the nares. Bleeding stopped after clamping in the ED and she did not have any further bleeding today. She was anemic from blood loss however and required transfusion. No acute treatment from me today but I reviewed strict epistaxis precautions for her, no nose blowing, further picking. Nasal saline 3-4x/day. Follow up with ENT clinic in 2 weeks. HPI Data of Consult Date/Time: 04/13/21 18:03 Requesting Physician: Laxmi Sethi PA-C Primary Care Provider: Shannon BrownMD Consult Narrative Narrative: Katie Novoa is a 81 year old female on Coumadin who was admitted with anemia following 5 hours of epistaxis caused by picking at a scab on the right nasal septum. She was treated in the ED who was able to control bleeding with a clamp but due to anemia kept her for observation. She was transfused with 1uPRBC earlier today. Doign well now, no further epistaxis. Review of Systems Review of Systems: All systems reviewed & are unremarkable except as noted in HPI and below PMFSH Past Medical History Medical History Anxiety Atrial fibrillation Cardiomyopathy Chronic anemia Depression GERD (gastroesophageal reflux disease) Hyperlipidemia Hypertension Pacemaker Sarcoidosis Surgical History Surgical History H/O maze procedure History of cholecystectomy History of hysterectomy History of knee replacement Bilateral History of mitral valve repair Family History Family History Mother Diabetes mellitus Heart disease Father Renal failure Lung cancer Heart disease Diabetes mellitus Sibling Breast cancer Social History Social History Social History: Ms. Novoa lives at home alone. 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 She has 2 adult daughters. Her primary care provider is Dr. Shannon Brown at [facility]. She designates her daughter, Adina, as her surrogate decision maker and she would like to be a full code. Smoking status: Never smoker Second hand tobacco smoke exposure: No Alcohol intake: never Substance use: never Gender identity (if verbalized by the patient): Female Spiritual care concerns: No Meds Home Medications and Allergies Home Medications Medication Instructions Recorded Confirmed Type acetaminophen [Tylenol] 650 mg PO PRN PRN 04/12/20 04/13/21 History aspirin 81 mg PO DAILY 04/12/20 04/13/21 History atorvastatin 10 mg PO HS 04/12/20 04/13/21 History docusate sodium [Colace] 100 mg PO DAILY 04/12/20 04/13/21 History sertraline 100 mg PO QAM 04/12/20 04/13/21 History spironolactone 25 mg PO DAILY 04/12/20 04/13/21 History Fiber Gummies 4 g PO DAILY 08/21/20 04/13/21 History ascorbic acid (vitamin C) 1 g PO DAILY 08/21/20 04/13/21 History biotin 2,500 mcg PO DAILY 08/21/20 04/13/21 History cholecalciferol (vitamin D3) 25 mcg PO DAILY 08/21/20 04/13/21 History gabapentin 100 mg PO TID 08/21/20 04/13/21 History methotrexate sodium [Methotrexate 12.5 mg PO WEEKLY 04/13/21 04/13/21 History (Anti-Rheumatic)] methotrexate sodium [Methotrexate 12.5 mg PO WEEKLY 04/13/21 04/13/21 History (Anti-Rheumatic)] warfarin 3 mg PO 3XW 04/13/21 04/13/21 History warfarin 4 mg PO DAILY 04/13/21 04/13/21 History Allergies Allergy/AdvReac Type Severity Reaction Status Date / Time iodine Allergy Intermediate Headache Verified 04/12/21 22:58 morphine Allergy Mild ABD. PAIN Verified 04/12/21 22:58 nalbuphine Allergy Mild Vomiting Verified 04/12/21 22:58 codeine Allergy Unknown Abdominal Verified 04/12/21 22:58 Pain Vital Sign
[2021-04-13] MEDS: ACETAMINOPHEN 325 MG TABLET 650 MG PO (18:51)
[2021-04-13] MEDS: ATORVASTATIN 10 MG TABLET PO (21:29)
[2021-04-13] MEDS: FAMOTIDINE 20 MG/2 ML VIAL IV PUSH (21:29)
[2021-04-13 21:54] LABS: Hematocrit 24.1 % (37.0-47.0); Hemoglobin 7.6 g/dL (12.0-15.0)
[2021-04-14 06:00] VITALS: BP 110/46; PULSE 62; RESP 18; TEMP 36.4; O2SAT 97
[2021-04-14 06:55] LABS: Hematocrit 24.4 % (37.0-47.0); Hemoglobin 7.7 g/dL (12.0-15.0); Immature Platelet Fraction Pct 6.2 % (0.9-11.2); Mean Corpuscular HGB Conc 31.6 g/dl (32-36); Mean Corpuscular Hemoglobin 27.6 pg (26-34); Mean Corpuscular Volume 87.5 fl (80-100); Mean Platelet Volume 12.3 fl (7.4-10.4); Platelet Count Result 94 k/mm3 (150-375); Red Blood Count 2.79 M/mm3 (4.2-5.4); Red Cell Distribution Width 18.6 % (11.5-14.5); White Blood Count 2.3 K/mm3 (4.5-10.0)
[2021-04-14 07:04] LABS: Anion Gap 8 mmol/L (8-16); Blood Urea Nitrogen 19 mg/dL (7-17); Calcium 8.9 mg/dL (8.4-10.2); Carbon Dioxide 26 mmol/L (22-30); Chloride 108 mmol/L (98-107); Estimated CRCL calculation 36 ml/min; Estimated Glomerular Filt Rate 53; Glucose 99 mg/dL (65-110); Potassium 3.8 mmol/L (3.4-5.0); Sodium 142 mmol/L (137-145)
[2021-04-14 07:21] LABS: INR 2.2; Prothrombin Time 24.1 Seconds (11.1-14.7)
[2021-04-14] MEDS: SERTRALINE HCL 50 MG TABLET 100 MG PO (11:18)
[2021-04-14] MEDS: GABAPENTIN 100 MG CAPSULE PO (11:19)
[2021-04-14] MEDS: CHOLECALCIFEROL 1,000 UNITS TABLET 1000 UNITS PO (11:19)
[2021-04-14] MEDS: FAMOTIDINE 20 MG/2 ML VIAL IV PUSH (11:19)
[2021-04-14 12:16] LABS: Hematocrit 26.4 % (37.0-47.0); Hemoglobin 8.3 g/dL (12.0-15.0)
--- NOTE | 2021-04-14 12:55 | P.DS_ITS ---
DS: Admitting Diagnosis Discharge Date 04/14/2021 Admitting Diagnosis Epistaxis DS: Discharge Diagnosis Discharge Diagnosis (1) Epistaxis: Code(s): R04.0 - Epistaxis Status: Acute Assessment and Plan: Nose bleed that lasted 4-5 hours secondary to picked scab inside right nare. * Nose clamp applied in the ED with cessation of bleeding and no further bleeding throughout hospital admission * Seen in consultation by ENT. No need for further intervention at this time * ENT follow-up in 2 weeks * Nasal saline 3-4 times per day * Afrin as needed only for active bleeding of the nose * Warfarin and aspirin held given bleeding risk; resume on 04/18/2021 (2) Acute blood loss anemia: Code(s): D62 - Acute posthemorrhagic anemia Status: Acute Assessment and Plan: Secondary to above. Acute on chronic anemia. Hemoglobin 6.3 time of presentation * Received 2 units pRBC * Hemoglobin and hematocrit stabilized following transfusion * Repeat H&H in 1 week to ensure remaining stable (3) Chronic anticoagulation: Code(s): Z79.01 - senior living (current) use of anticoagulants Status: Acute Assessment and Plan: On warfarin due to history of atrial fibrillation * reports INR last checked 04/08 was 2.4 * INR 3.1 on presentation * warfarin on hold due to epistaxis * Resume warfarin on 04/18/2021 (4) Atrial fibrillation: Code(s): I48.91 - Unspecified atrial fibrillation Status: Acute Assessment and Plan: rate remained controlled throughout hospitalization * Continue metoprolol * Warfarin on hold as described above. Discussed stroke risk vs bleeding risk and she verbalized understanding. Resume in 3 days (5) CHF (congestive heart failure): Code(s): I50.9 - Heart failure, unspecified Status: Acute Assessment and Plan: Clinically compensated, she was euvolemic * Spironolactone held due to NEETU, resumed on discharge as renal function returned to baseline * heart healthy diet * CHF education provided (6) Hypertension: Code(s): I10 - Essential (primary) hypertension Status: Inactive Assessment and Plan: Blood pressure reviewed and was stable * Continue metoprolol * Encourage monitoring of blood pressure at home for PCP (7) Sarcoidosis: Code(s): D86.9 - Sarcoidosis, unspecified Status: Inactive Assessment and Plan: She is established with storage specialist Dr. Huerta at [facility] * On immunosuppressive therapy with weekly methotrexate. Last dose Monday04/10/21 (8) Acute kidney injury: Code(s): N17.9 - Acute kidney failure, unspecified Status: Acute Assessment and Plan: Creatinine slightly elevated up to 1.2 at presentation. baseline is 1.0 * Likely related to hypovolemia from blood loss and/or hypotensive episode * Spironolactone held but was resumed as renal function returned to baseline * Improved with IV fluids and blood * Creatinine 1.0 at time of discharge DS: Summary Hospital Course Hospital Course: Date of admission: 04/13/2021 Date of discharge: 04/14/2021 Katie Novoa is 81-year-old female with a history of atrial fibrillation on chronic anticoagulation, chronic anemia, sarcoidosis, CHF, hypertension, anxiety and depression who presented to the emergency department on 04/13/2021 with complaints of a nose bleed. On presentation to the emergency department, her melina
--- NOTE | 2021-04-14 12:55 | PM.DS ---
DS: Admitting Diagnosis Discharge Date 04/14/2021 Admitting Diagnosis Epistaxis DS: Discharge Diagnosis Discharge Diagnosis (1) Epistaxis: Code(s): R04.0 - Epistaxis Status: Acute Assessment and Plan: Nose bleed that lasted 4-5 hours secondary to picked scab inside right nare. Nose clamp applied in the ED with cessation of bleeding and no further bleeding throughout hospital admission Seen in consultation by ENT. No need for further intervention at this time ENT follow-up in 2 weeks Nasal saline 3-4 times per day Afrin as needed only for active bleeding of the nose Warfarin and aspirin held given bleeding risk; resume on 04/18/2021 (2) Acute blood loss anemia: Code(s): D62 - Acute posthemorrhagic anemia Status: Acute Assessment and Plan: Secondary to above. Acute on chronic anemia. Hemoglobin 6.3 time of presentation Received 2 units pRBC Hemoglobin and hematocrit stabilized following transfusion Repeat H&H in 1 week to ensure remaining stable (3) Chronic anticoagulation: Code(s): Z79.01 - terminal block assembler (current) use of anticoagulants Status: Acute Assessment and Plan: On warfarin due to history of atrial fibrillation reports INR last checked 04/08 was 2.4 INR 3.1 on presentation warfarin on hold due to epistaxis Resume warfarin on 04/18/2021 (4) Atrial fibrillation: Code(s): I48.91 - Unspecified atrial fibrillation Status: Acute Assessment and Plan: rate remained controlled throughout hospitalization Continue metoprolol Warfarin on hold as described above. Discussed stroke risk vs bleeding risk and she verbalized understanding. Resume in 3 days (5) CHF (congestive heart failure): Code(s): I50.9 - Heart failure, unspecified Status: Acute Assessment and Plan: Clinically compensated, she was euvolemic Spironolactone held due to NEETU, resumed on discharge as renal function returned to baseline heart healthy diet CHF education provided (6) Hypertension: Code(s): I10 - Essential (primary) hypertension Status: Inactive Assessment and Plan: Blood pressure reviewed and was stable Continue metoprolol Encourage monitoring of blood pressure at home for PCP (7) Sarcoidosis: Code(s): D86.9 - Sarcoidosis, unspecified Status: Inactive Assessment and Plan: She is established with resource manager Dr. Huerta at [facility] On immunosuppressive therapy with weekly methotrexate. Last dose Monday04/10/21 (8) Acute kidney injury: Code(s): N17.9 - Acute kidney failure, unspecified Status: Acute Assessment and Plan: Creatinine slightly elevated up to 1.2 at presentation. baseline is 1.0 Likely related to hypovolemia from blood loss and/or hypotensive episode Spironolactone held but was resumed as renal function returned to baseline Improved with IV fluids and blood Creatinine 1.0 at time of discharge DS: Summary Hospital Course Hospital Course: Date of admission: 04/13/2021 Date of discharge: 04/14/2021 Katie Novoa is 81-year-old female with a history of atrial fibrillation on chronic anticoagulation, chronic anemia, sarcoidosis, CHF, hypertension, anxiety and depression who presented to the emergency department on 04/13/2021 with complaints of a nose bleed. On presentation to the emergency department, her vital signs were stable, she was afebrile, hemoglobin 6.3, hematocrit 20.7, platelets 110, BUN and creatinine minimally elevated with additional CBC and BMP unremarkable, and INR 3.1. Nose clamp was applied in the ED and bleeding stopped. She was admitted to the hospitalist service and was seen in consultation by ENT. Please see above for further details. Hemoglobin and hematocrit stabilized following transfusion and she had no further blood loss. She was feeling back to her usual state of health and
[2021-04-14 14:00] VITALS: BP 108/47; PULSE 65; RESP 14; TEMP 36.4; O2SAT 98
--- NOTE | 2021-04-14 16:34 | PC.NURSE ---
On 04/14/21, the student, Livia Lopez, provided care and completed [facility] on this patient. I have reviewed the student's documentation and agree with the findings.
== END 2021-04-14 15:54 | disposition home or self-care (01) ==
LOC: ANHED 04-13 04:15 → ANH3MEDSUR 04-13 04:30
PROVIDERS: Physician Assistant; Admitting Provider Family Medicine; Emergency Provider Emergency Medicine; PCP Internal Medicine; Visit Provider Family Medicine
DX: R04.0 Epistaxis (principal); I48.91 Unspecified atrial fibrillation; D62 Acute posthemorrhagic anemia; D86.9 Sarcoidosis, unspecified; F41.8 Other specified anxiety disorders; I11.0 Hypertensive heart disease with heart failure; I50.9 Heart failure, unspecified; R06.02 Shortness of breath; N17.9 Acute kidney failure, unspecified; Z95.0 Presence of cardiac pacemaker; Z79.01 Long term (current) use of anticoagulants
CPT/HCPCS: 36415; 36430; 80048; 80053; 85014; 85018; 85025; 85027; 85055; 85610; 85730; 86850; 86900; 86901; 86920; 96361; 96374; 96376; 99285; A9270; G0378; J7030; J7050; P9016

== ENCOUNTER 2021-04-23 11:32 | Outpatient (CLI) | payer MEDICARE, SELFPAY ==
[2021-04-23 12:03] LABS: Hematocrit 30.3 % (37.0-47.0); Hemoglobin 9.2 g/dL (12.0-15.0)
== END 2021-04-23 11:33 | disposition home or self-care (01) ==
PROVIDERS: PCP Internal Medicine; Visit Provider Physician Assistant
DX: D62 Acute posthemorrhagic anemia (principal)
CPT/HCPCS: 36415; 85014; 85018

== ENCOUNTER 2021-06-19 18:30 | Emergency (ER) | payer MEDICARE, SELFPAY ==
--- NOTE | ~2021-06-19 | CT_ITS ---
EXAMINATION: CT cervical spine wo con EXAM DATE: 06/19/2021 20:47 INDICATION: Neck pain, fall. TECHNIQUE: Spiral CT of the cervical spine was performed without contrast. Axial images were reviewe d. Coronal and sagittal reformatted images cervical spine were also reviewed. The dose-length produc t (DLP) for this examination was 174.16 mGy-cm. The exposure was tailored according to patient size (auto mA exposure control), and iterative reconstruction (ASIR) was used as additional dose reduction technique. There is no prior study for comparison. FINDINGS: There is no evidence of acute cervical fracture. The odontoid process is intact. Pre-den s space is normal. Prevertebral soft tissue is normal. There are no soft tissue abnormalities ident ified. There is no disc space widening or traumatic vertebral body subluxation suspected. Advanced cervical disc disease C5-T1. Advanced left-sided mid cervical facet arthropathy. Mild cervical dextro scoliosis. A detailed level by level evaluation of spondylosis can be added as addendum if requested . IMPRESSION: 1. No acute cervical fracture. 2. Cervical spondylosis. Reviewed, dictated and finalized at location A. T CARD CLERK
--- NOTE | ~2021-06-19 | CT_ITS ---
EXAMINATION: CT brain wo con EXAM DATE: 06/19/2021 18:45 INDICATION: Fall, frontal head injury. On warfarin. TECHNIQUE: Spiral CT of the head was performed without contrast. Axial, coronal and sagittal images were reviewed. The dose-length product (DLP) for this examination was 605.33 mGy-cm. The exposure w as tailored according to patient size, and iterative reconstruction (ASIR) was used as additional dos e reduction technique. There is no prior study for comparison. FINDINGS: There is no acute intraparenchymal hemorrhage. No evidence of intraparenchymal brain mass lesion. No evidence of acute infarction. Please note that initial head CT has limited sensitivity f or small or acute infarctions. There is mild periventricular and subcortical hypodensity, nonspecific but probably related to small vessel ischemic disease. There is mild prominence of the sulci and v entricles related to cerebral atrophy. There is intracranial carotid arteriosclerosis. There are n o extra-axial collections. There is no mass effect or midline shift. Patient has had bilateral ocul ar lens surgery. Small right frontal scalp contusion. The visualized sinuses and mastoid air cells a re well aerated. IMPRESSION: 1. Small right frontal scalp contusion without underlying fracture. 2. Chronic age related findings. Reviewed, dictated and finalized at location A. TRONICS RESEARCH ENGINEER
[2021-06-19 18:33] VITALS: BP 111/51; PULSE 60; RESP 16; TEMP 36.5; O2SAT 100
--- NOTE | 2021-06-19 20:26 | PC.NURSE ---
PT IS REFUSING IMAGING AT THIS TIME. IT IS A WASTE OF TIME AND MONEY, MY NECK DOES NOT HURT THAT BAD.
--- NOTE | 2021-06-19 20:54 | ED.FALL ---
HPI - Fall General Chief Complaint: Fall Stated Complaint: fall- on blood thinners Time Seen by Provider: 06/19/21 19:20 Source: patient Mode of arrival: ambulatory Limitations: no limitations History of Present Illness HPI Narrative: This is a 81 year old female that presents to the ER for a ground level fall sustained just prior to arrival. Reports she tripped and fell forward. Reports hitting her head. Denies loss of consciousness. Reports a hematoma to the right side of the forehead. She is on Warfarin. She also reports some neck pain. Denies vision changes, vomiting, numbness or weakness. Related Data Home Medications Medication Instructions Recorded Confirmed acetaminophen [Tylenol] 650 mg PO PRN PRN 04/12/20 04/13/21 aspirin 81 mg PO DAILY 04/12/20 04/13/21 atorvastatin 10 mg PO HS 04/12/20 04/13/21 docusate sodium [Colace] 100 mg PO DAILY 04/12/20 04/13/21 sertraline 100 mg PO QAM 04/12/20 04/13/21 spironolactone 25 mg PO DAILY 04/12/20 04/13/21 Fiber Gummies 4 g PO DAILY 08/21/20 04/13/21 ascorbic acid (vitamin C) 1 g PO DAILY 08/21/20 04/13/21 biotin 2,500 mcg PO DAILY 08/21/20 04/13/21 cholecalciferol (vitamin D3) 25 mcg PO DAILY 08/21/20 04/13/21 gabapentin 100 mg PO TID 08/21/20 04/13/21 methotrexate sodium 12.5 mg PO WEEKLY 04/13/21 04/13/21 methotrexate sodium 12.5 mg PO WEEKLY 04/13/21 04/13/21 warfarin 3 mg PO 3XW 04/13/21 04/13/21 warfarin 4 mg PO DAILY 04/13/21 04/13/21 Allergies Allergy/AdvReac Type Severity Reaction Status Date / Time iodine Allergy Intermediate Headache Verified 04/12/21 22:58 morphine Allergy Mild ABD. PAIN Verified 04/12/21 22:58 nalbuphine Allergy Mild Vomiting Verified 04/12/21 22:58 codeine Allergy Unknown Abdominal Verified 04/12/21 22:58 Pain Review of Systems Review of Systems: CONSTITUTIONAL: Denies fever EYES: Denies visual changes GASTROINTESTINAL: Denies vomiting MUSCULOSKELETAL: Reports joint pain, and myalgia. NEUROLOGIC: Denies numbness, or weakness. All systems reviewed & are unremarkable except as noted in HPI and below PMFSH Past Medical History Medical History Anxiety Atrial fibrillation Cardiomyopathy Chronic anemia Depression GERD (gastroesophageal reflux disease) Hyperlipidemia Hypertension Pacemaker Sarcoidosis Surgical History Surgical History H/O maze procedure History of cholecystectomy History of hysterectomy History of knee replacement Bilateral History of mitral valve repair Family History Family History Mother Diabetes mellitus Heart disease Father Renal failure Lung cancer Heart disease Diabetes mellitus Sibling Breast cancer Social History Social History Social History: Ms. Novoa lives at home alone. 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 She has 2 adult daughters. Her primary care provider is Dr. Shannon Brown at [facility]. She designates her daughter, Adina, as her surrogate decision maker and she would like to be a full code. Smoking status: Never smoker Second hand tobacco smoke exposure: No Alcohol intake: never Substance use: never Gender identity (if verbalized by the patient): Female Spiritual care concerns: No Exam Narrative: GENERAL: Well-appearing, well-nourished, and in no acute distress. HEAD: Normocephalic, atraumatic. EYES: PERRLA and EOMI. ENT: Nares clear, no rhinorrhea or epistaxis. Mucous membranes moist. Oropharynx without tonsillar hypertrophy exudate or other lesions. Bilateral TMs pearly sorensen non-bulging NECK: Supple. No adenopathy or masses. CHEST: Clear to auscultation. No respiratory distress. No wheezes rales or rhonchi HEART: Regular rate and rhythm. No murmur heard. Normal peripheral pulses. BACK: No midline thoracic or lumbar spine ten
[2021-06-19 21:55] VITALS: BP 118/55; PULSE 59; RESP 18; O2SAT 98
== END 2021-06-19 21:55 | disposition home or self-care (01) ==
PROVIDERS: Emergency Provider Emergency Medicine; PCP Internal Medicine
DX: S00.83XA Contusion of other part of head, initial encounter (principal); M47.812 Spondylosis without myelopathy or radiculopathy, cervical region; F41.9 Anxiety disorder, unspecified; I48.91 Unspecified atrial fibrillation; F32.9 Major depressive disorder, single episode, unspecified; K21.9 Gastro-esophageal reflux disease without esophagitis; I10 Essential (primary) hypertension; E78.5 Hyperlipidemia, unspecified; Z95.0 Presence of cardiac pacemaker; Z79.01 Long term (current) use of anticoagulants; W01.0XXA Fall on same level from slipping, tripping and stumbling without subsequent striking against object, initial encounter
CPT/HCPCS: 70450; 72125; 99284

== ENCOUNTER 2021-08-01 13:46 | Emergency (ER) | payer MEDICARE, SELFPAY ==
[2021-08-01] VITALS (27 sets, daily range): BP systolic 88–117; BP diastolic 47–83; PULSE 60–176; RESP 11–22; TEMP 36.1; O2SAT 98–100
--- NOTE | ~2021-08-01 | XR_ITS ---
XR chest 1V portable DATE: 08/01/2021 14:17 INDICATION: Cough, congestion. Covid-positive. TECHNIQUE: Portable AP chest on 08/01/2021 at 1410 hours COMPARISON: 04/2020 AP and lateral chest FINDINGS: Cardiac valve replacement. Normal heart size. Aortic arch calcification. Left-sided transvenous pacemaker device with leads overlying right atrium and right ventricle. There is discoid scarring in the mid and lower lung zones bilaterally, stable since 04/2020. There is elevation right leaf of the diaphragm, also chronic. No interval pulmonary infiltrate or consolidation, pleural effusion or pulmonary vascular congestion or pneumothorax is detected. Diffuse osteopenia. There is dextroscoliosis of the thoracic spine. IMPRESSION: Chronic bilateral discoid scarring and chronic elevation right diaphragm No active pulmonary disease is detected Reviewed, dictated and finalized at location A. STRIAL GAS SERVICER SUPERVISOR IMPRESSION: Chronic bilateral discoid scarring and chronic elevation right diap hragm No active pulmonary disease is detected
--- NOTE | 2021-08-01 13:54 | ECG_ITS ---
Measurements Intervals [place] Rate: 168 P: [place]: 0 QRS: 22 QRSD: 77 T: 33 QT: 261 QTc: 437 Interpretive Statements ATRIAL FIBRILLATION WITH RAPID VENTRICULAR RESPONSE NONSPECIFIC ST & T-WAVE ABNORMALITY- INF/LAT LEADS BASELINE ARTIFACT- I, II, III, AVR, AVF, V2-V6 ABNORMAL ECG Electronically Signed On 08-01-2021 20:16:57 SOCIAL WORK LECTURER by Nimesh Phillips D.O.
--- NOTE | 2021-08-01 14:04 | PC.NURSE ---
Pt self-converted out of her arrhythmia at this time. HR now 60bpm, repeat EKG completed. Gely COWART aware.
--- NOTE | 2021-08-01 14:06 | ECG_ITS ---
Measurements Intervals [place] Rate: 60 P: -77 OR: 200 QRS: 11 QRSD: 89 T: 30 QT: 425 QTc: 425 Interpretive Statements ELECTRONIC ATRIAL PACEMAKER BASELINE ARTIFACT- II, III, AVR, AVF, V2-V6 ATYPICAL ECG Electronically Signed On 08-01-2021 20:17:57 ASP NET PROGRAMMER by Nimesh Phillips D.O.
--- NOTE | 2021-08-01 14:07 | ED.CHESTPAIN ---
HPI - Chest Pain General Chief Complaint: Chest Pain Stated Complaint: rapid heart rate-hx of afib Chest pain Time Seen by Provider: 08/01/21 13:53 Source: RN notes reviewed History of Present Illness HPI narrative: Patient presents emergency department from home for A. fib. Patient states she has a history of intermittent atrial fibrillation she is followed by Dr. Juan Villafana at [facility] states that she is on Coumadin which she has been taking has been taking all her medication she states she had a total of 16 cardioversions states that she fell like her heart began racing proximally 45 minutes ago states she did have anterior chest pressure with that that is now resolved she denies any fevers or chills states she has had a cough this been productive and just tested positive for COVID-19 on July 26 she denies any nausea vomiting Related Data Home Medications Medication Instructions Recorded Confirmed acetaminophen [Tylenol] 650 mg PO PRN PRN 04/12/20 04/13/21 aspirin 81 mg PO DAILY 04/12/20 04/13/21 atorvastatin 10 mg PO HS 04/12/20 04/13/21 docusate sodium [Colace] 100 mg PO DAILY 04/12/20 04/13/21 sertraline 100 mg PO QAM 04/12/20 04/13/21 spironolactone 25 mg PO DAILY 04/12/20 04/13/21 Fiber Gummies 4 g PO DAILY 08/21/20 04/13/21 ascorbic acid (vitamin C) 1 g PO DAILY 08/21/20 04/13/21 biotin 2,500 mcg PO DAILY 08/21/20 04/13/21 cholecalciferol (vitamin D3) 25 mcg PO DAILY 08/21/20 04/13/21 gabapentin 100 mg PO TID 08/21/20 04/13/21 methotrexate sodium 12.5 mg PO WEEKLY 04/13/21 04/13/21 methotrexate sodium 12.5 mg PO WEEKLY 04/13/21 04/13/21 warfarin 3 mg PO 3XW 04/13/21 04/13/21 warfarin 4 mg PO DAILY 04/13/21 04/13/21 Allergies Allergy/AdvReac Type Severity Reaction Status Date / Time iodine Allergy Intermediate Headache Verified 04/12/21 22:58 morphine Allergy Mild ABD. PAIN Verified 04/12/21 22:58 nalbuphine Allergy Mild Vomiting Verified 04/12/21 22:58 codeine Allergy Unknown Abdominal Verified 04/12/21 22:58 Pain Review of Systems Review of Systems: Gen.: Denies fevers or chills Eyes: Denies eye pain or visual change ENT: Denies congestion Respiratory: Denies shortness of breath reports cough CV: See HPI GI: Denies abdominal pain nausea, emesis or diarrhea Musculoskeletal: Denies back pain or muscle pain Neuro: Denies numbness, tingling, weakness or focal weakness Skin: Denies rash Except as documented, all other systems reviewed and negative [facility] Past Medical History Medical History Anxiety Atrial fibrillation Cardiomyopathy Chronic anemia Depression GERD (gastroesophageal reflux disease) Hyperlipidemia Hypertension Pacemaker Sarcoidosis Surgical History Surgical History H/O maze procedure History of cholecystectomy History of hysterectomy History of knee replacement Bilateral History of mitral valve repair Family History Family History Mother Diabetes mellitus Heart disease Father Renal failure Lung cancer Heart disease Diabetes mellitus Sibling Breast cancer Social History Social History Social History: Ms. Novoa lives at home alone. 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 She has 2 adult daughters. Her primary care provider is Dr. Shannon Brown at [facility]. She designates her daughter, Adina, as her surrogate decision maker and she would like to be a full code. Smoking status: Never smoker Second hand tobacco smoke exposure: No Alcohol intake: never Substance use: never Gender identity (if verbalized by the patient): Female Spiritual care concerns: No Exam Narrative: APPEARANCE: No acute distress, nontoxic, resting in bed EYES: EOMI HEENT: Normocephalic, atraumatic, OMM RESPIRATORY: No respiratory
[2021-08-01 14:19] LABS: Basophils Percent Auto 0.5 % (0.2-1.2); Eosinophils Percent Auto 0.5 % (0-4.4); Hematocrit 33.5 % (37.0-47.0); Hemoglobin 9.7 g/dL (12.0-15.0); Immature Granulocyte Absolute 0.02 K/mm3 (0.00-0.031); Immature Granulocyte Percent A 0.5 % (0-0.5); Lymphocytes Absolute Auto 2.13 K/mm3 (0.9-3.2); Lymphocytes Percent Auto 54.6 % (18.3-44.2); Mean Corpuscular Hemoglobin 23.5 pg (26-34); Mean Corpuscular Volume 81.3 fl (80-100); Mean Platelet Volume 11.9 fl (7.4-10.4); Monocytes Absolute Auto 0.5 K/mm3 (0.1-0.6); Monocytes Percent Auto 13.3 % (2.6-8.5); Neutrophils Absolute Auto 1.2 K/mm3 (1.3-6.7); Neutrophils Percent Auto 30.6 % (45.5-73.1); Platelet Count Result 168 k/mm3 (150-375); Red Blood Count 4.12 M/mm3 (4.2-5.4); Red Cell Distribution Width 19.2 % (11.5-14.5); White Blood Count 3.9 K/mm3 (4.5-10.0)
[2021-08-01 14:30] LABS: Alanine Aminotransferase 19 U/L (4-35); Albumin Level 4.6 g/dL (3.5-5.1); Alkaline Phosphatase 122 U/L (38-126); Anion Gap 10 mmol/L (8-16); Aspartate Amino Transferase 29 U/L (14-36); Bilirubin,Total 0.5 mg/dL (0.2-1.3); Blood Urea Nitrogen 20 mg/dL (7-17); Calcium 9.4 mg/dL (8.4-10.2); Carbon Dioxide 24 mmol/L (22-30); Chloride 102 mmol/L (98-107); Estimated Glomerular Filt Rate 53; Glucose 163 mg/dL (65-110); Sodium 136 mmol/L (137-145)
[2021-08-01 14:35] LABS: INR 1.8; Prothrombin Time 20.1 Seconds (11.1-14.7)
[2021-08-01] MEDS: SODIUM CHLORIDE 0.9% IV 500 ML 999 ML IV CONT ×2 (14:35→15:48)
[2021-08-01 14:36] LABS: Partial Thromboplastin Time 34.9 SECONDS (22.3-36.8)
[2021-08-01 14:43] LABS: NT Pro B Type Natriuretic Pept 661 pg/mL (5-100); Troponin I < 0.012 ng/mL (0.000-0.034)
[2021-08-01 15:01] LABS: Anisocytosis 2+ (NORMAL); Hypochromasia 1+ (NORMAL); Platelet Estimate Adequate (Adequate)
[2021-08-01 16:02] LABS: Add Urine Microscopic? NO; Appearance Urine Clear (Clear); Bilirubin Urine Negative (Negative); Blood Urine Negative (Negative); Color Urine Colorless (Yellow); Glucose Urine UA Negative (Negative); Ketones Urine Negative (Negative); Leukocyte Esterase Ur Negative LEU/UL (Negative); Nitrate Urine Negative (Negative); Protein Urine Negative (Negative); Specific Grav Ur 1.005 (1.001-1.035); Urobilinogen Urine Negative mg/dL (<2.0)
== END 2021-08-01 18:25 | disposition home or self-care (01) ==
PROVIDERS: Emergency Provider Emergency Medicine; PCP Internal Medicine
DX: I48.91 Unspecified atrial fibrillation (principal); U07.1 COVID-19; I42.9 Cardiomyopathy, unspecified; D64.9 Anemia, unspecified; K21.9 Gastro-esophageal reflux disease without esophagitis; I10 Essential (primary) hypertension; E78.5 Hyperlipidemia, unspecified; F41.9 Anxiety disorder, unspecified; D86.9 Sarcoidosis, unspecified; Z95.0 Presence of cardiac pacemaker; Z96.653 Presence of artificial knee joint, bilateral; Z79.01 Long term (current) use of anticoagulants
CPT/HCPCS: 36415; 71045; 80053; 81003; 83880; 84484; 85025; 85610; 85730; 93005; 96360; 96361; 99284; J7040

== ENCOUNTER 2022-01-27 19:06 | Emergency (ER) | payer MEDICARE, SELFPAY ==
--- NOTE | ~2022-01-27 | CT_ITS ---
EXAMINATION: CT brain wo con DATE: 01/27/2022 20:09 INDICATION: Head injury. TECHNIQUE: Computed tomography (CT) of the head was performed without intravenous contrast. The mA wa s adjusted according to patient size. Iterative reconstruction technique was employed. The dose-lengt h product was 605.33 mGy-cm. COMPARISON: Head CT 06/19/2021 FINDINGS: There are scattered areas of low attenuation in the cerebral white matter. There is no intr acranial hemorrhage, acute infarction, or abnormal intracranial mass lesion. The ventricles are nando l in size. There is mucosal thickening in the paranasal sinuses. There are likely changes of ocular l ens replacement surgeries. There is a small right mastoid effusion. IMPRESSION: 1. Stable moderate nonspecific cerebral white matter disease, which likely represents chronic small v essel ischemic disease. Reviewed, dictated and finalized at location A. IMPRESSION: 1. Stable moderate nonspecific cerebral white matter disease, which likely repr esents chronic small vessel ischemic disease.
--- NOTE | ~2022-01-27 | CT_ITS ---
EXAMINATION: CT cervical spine wo con DATE: 01/27/2022 20:09 INDICATION: Head injury. TECHNIQUE: Computed tomography (CT) of the cervical spine was performed without intravenous contrast. Automated exposure control and iterative reconstruction technique were employed. The dose-length pro duct was 332.13 mGy-cm. COMPARISON: CT cervical spine 06/19/2021 FINDINGS: There is 11 degrees dextroscoliosis of cervicothoracic spine. There is 2 mm anterolisthesis of C4 on C5. There is kyphosis of lower cervical spine. Vertebral body heights are normal. There is mildly decreased disc height at C4-C5 and severely decreased disc height from C5-C6 to C7-T1. The fol lowing disc levels are specifically discussed: C2-C3: There is no uncovertebral joint osteoarthritis. There is ankylosis of the facet joints with mi ld hypertrophy on the left. There is no neural foraminal stenosis. There is no central canal stenosis . C3-C4: There is mild left uncovertebral joint osteoarthritis. There is severe left facet joint osteoa rthritis. There is mild left neural foraminal stenosis. There is mild central canal stenosis. C4-C5: There is no uncovertebral joint osteoarthritis. There is mild right and severe left facet join t osteoarthritis. There is mild left neural foraminal stenosis. There is mild central canal stenosis. C5-C6: There is severe bilateral uncovertebral joint osteoarthritis. There is moderate right and varinder re left facet joint osteoarthritis. There is mild bilateral neural foraminal stenosis. There is mild central canal stenosis. C6-C7: There is mild bilateral uncovertebral joint osteoarthritis. There is mild right and severe lef t facet joint osteoarthritis. There is mild left neural foraminal stenosis. There is mild central can al stenosis. C7-T1: There is severe bilateral uncovertebral joint osteoarthritis. There is severe bilateral facet joint osteoarthritis. There is mild bilateral neural foraminal stenosis. There is no central canal st enosis. IMPRESSION: 1. No fracture. 2. Severe cervical spondylosis. Reviewed, dictated and finalized at location A.
[2022-01-27 19:18] VITALS: BP 106/50; PULSE 59; RESP 16; TEMP 36.6; O2SAT 98
[2022-01-27 21:57] VITALS: BP 109/64; PULSE 59; RESP 18; O2SAT 100
--- NOTE | 2022-01-27 22:27 | ED.GENADULT ---
HPI - General Adult General Chief complaint: Head Injury Stated complaint: Fall x1 week ago, Hit head Time Seen by Provider: 01/27/22 22:24 History of Present Illness HPI narrative: 51-year-old female presenting to the emergency department for evaluation of intermittent headache and lateral neck pain. Patient states that she had a head injury about 2 weeks ago that was a result of her rolling out of bed while she was sleeping. Patient states at that time she did strike her head on the nightstand that was next to the bed. Patient does take Coumadin. Patient has since moved to sleeping in the middle of the bed and has moved to the nightstand away from the side of the bed. Patient states she has had intermittent headache but denies any associated nausea vomiting dizziness or lightheadedness. Patient has bilateral paraspinal neck pain but denies any midline neck pain. Patient denies any associated numbness or weakness. Patient has not taken any medications for pain control. Related Data Home Medications Medication Instructions Recorded Confirmed acetaminophen 325 mg capsule 650 mg PO PRN PRN Pain 04/12/20 04/13/21 (Tylenol) aspirin 81 mg chewable tablet 81 mg PO DAILY 04/12/20 04/13/21 atorvastatin 10 mg tablet 10 mg PO HS 04/12/20 04/13/21 docusate sodium 100 mg capsule 100 mg PO DAILY 04/12/20 04/13/21 (Colace) sertraline 100 mg tablet 100 mg PO QAM 04/12/20 04/13/21 spironolactone 25 mg tablet 25 mg PO DAILY 04/12/20 04/13/21 ascorbic acid (vitamin C) 1,000 mg 1 g PO DAILY 08/21/20 04/13/21 tablet biotin 2,500 mcg tablet 2,500 mcg PO DAILY 08/21/20 04/13/21 cholecalciferol (vitamin D3) 25 25 mcg PO DAILY 08/21/20 04/13/21 mcg (1,000 unit) tablet gabapentin 100 mg capsule 100 mg PO TID 08/21/20 04/13/21 inulin 2 gram chewable tablet 4 g PO DAILY 08/21/20 04/13/21 (Fiber Gummies) methotrexate sodium 2.5 mg tablet 12.5 mg PO WEEKLY 04/13/21 04/13/21 methotrexate sodium 2.5 mg tablet 12.5 mg PO WEEKLY 04/13/21 04/13/21 warfarin 1 mg tablet 3 mg PO 3XW 04/13/21 04/13/21 warfarin 1 mg tablet 4 mg PO DAILY 04/13/21 04/13/21 Allergies Allergy/AdvReac Type Severity Reaction Status Date / Time iodine Allergy Intermediate Headache Verified 01/27/22 22:00 morphine Allergy Mild ABD. PAIN Verified 01/27/22 22:00 nalbuphine Allergy Mild Vomiting Verified 01/27/22 22:00 codeine Allergy Unknown Abdominal Verified 01/27/22 22:00 Pain Review of Systems Review of Systems: CONSTITUTIONAL: Denies fever, chills, or sweats. EYES: Denies visual changes, redness, or discharge. ENT: Denies rhinorrhea, congestion, sore throat, or otalgia. CARDIOVASCULAR: Denies chest pain, palpitations, or edema. RESPIRATORY: Denies cough or dyspnea. GASTROINTESTINAL: Denies abdominal pain, nausea, vomiting, or diarrhea. GENITOURINARY: Denies dysuria or hematuria. SKIN: Denies rash or itching. MUSCULOSKELETAL: Denies back pain, joint pain, or myalgia. NEUROLOGIC: See HPI [facility] Past Medical History Medical History Anxiety Atrial fibrillation Cardiomyopathy Chronic anemia Depression GERD (gastroesophageal reflux disease) Hyperlipidemia Hypertension Pacemaker Sarcoidosis Surgical History Surgical History H/O maze procedure History of cholecystectomy History of hysterectomy History of knee replacement Bilateral History of mitral valve repair Family History Family History Mother Diabetes mellitus Heart disease Father Renal failure Lung cancer Heart disease Diabetes mellitus Sibling Breast cancer Social History Social History Social History: Ms. Novoa lives at home alone. 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 She has 2 adult daughters. Her primary care provider is Dr. Shannon Brown at
== END 2022-01-27 23:05 | disposition home or self-care (01) ==
LOC: ANHED 22:52
PROVIDERS: Emergency Provider Emergency Medicine; PCP Internal Medicine
DX: S09.90XA Unspecified injury of head, initial encounter (principal); S19.9XXA Unspecified injury of neck, initial encounter; I48.91 Unspecified atrial fibrillation; I42.9 Cardiomyopathy, unspecified; D64.9 Anemia, unspecified; K21.9 Gastro-esophageal reflux disease without esophagitis; E78.5 Hyperlipidemia, unspecified; I10 Essential (primary) hypertension; Z95.0 Presence of cardiac pacemaker; D86.9 Sarcoidosis, unspecified; F41.9 Anxiety disorder, unspecified; F32.A Depression, unspecified; Z79.01 Long term (current) use of anticoagulants; Z79.82 Long term (current) use of aspirin; Z96.653 Presence of artificial knee joint, bilateral; R90.82 White matter disease, unspecified; M47.812 Spondylosis without myelopathy or radiculopathy, cervical region; W10.9XXA Fall (on) (from) unspecified stairs and steps, initial encounter
CPT/HCPCS: 70450; 72125; 99284